=== PATIENT | male | born 1995 | race Caucasian/White ===

== ENCOUNTER 2021-02-12 10:20 | Emergency (ER) | payer MEDICAID, SELFPAY ==
[2021-02-12 10:22] VITALS: BP 140/77; PULSE 59; RESP 14; TEMP 36.7; O2SAT 99
--- NOTE | 2021-02-12 10:30 | DI.RAD_ITS ---
Exam(s) XR SHOULDER RT COMPLETE 2+V EXAM: XR SHOULDER RT COMPLETE 2+V CLINICAL HISTORY: R/O Fracture/ Dislocation. TECHNIQUE: 2D digital imaging was performed. COMPARISON: No exams were available for comparison FINDINGS: BONES: There is an acute mildly displaced fracture of the scapula just inferior to the glenoid. The inferior aspect of the scaphoid scapula is slightly displaced posteriorly. No bony destructive lesio n is seen. JOINTS: No dislocation present. SOFT TISSUE: Normal. IMPRESSION: Mildly displaced scapular fracture as described. DATA REPOSITORY: RADIATION DOSE DELIVERED:
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
== END 2021-02-12 12:08 | disposition home or self-care (01) ==
PROVIDERS: Emergency Provider Registered Nurse Emergency; PCP Pediatrics
DX: S42.191A Fracture of other part of scapula, right shoulder, initial encounter for closed fracture (principal); V19.9XXA Pedal cyclist (driver) (passenger) injured in unspecified traffic accident, initial encounter
CPT/HCPCS: 99283; 73030

== ENCOUNTER 2021-02-23 07:54 | Emergency (ER) | payer MEDICAID, SELFPAY ==
[2021-02-23 07:59] VITALS: BP 115/62; PULSE 63; RESP 18; TEMP 36.6; O2SAT 98
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
--- NOTE | 2021-02-23 08:30 | DI.RAD_ITS ---
Exam(s) XR SHOULDER RT COMPLETE 2+V EXAM: XR SHOULDER RT COMPLETE 2+V CLINICAL HISTORY: fx evaluation, fell >2wk ago. TECHNIQUE: 2D digital imaging was performed. COMPARISON: No exams were available for comparison FINDINGS: BONES: There has been no change in the alignment of the previously noted fracture of the scapula seen inferior to the glenoid. There is slightly increased callus formation at the fracture site. No new fractures are identified. No bony destructive lesion is seen. JOINTS: No dislocation present. SOFT TISSUE: Normal. IMPRESSION: Stable appearance of scapular fracture. DATA REPOSITORY: RADIATION DOSE DELIVERED:
--- NOTE | 2021-02-23 09:15 | DI.CT_ITS ---
Exam(s) CT UPPER EXTREMITY RT WO EXAM: CT UPPER EXTREMITY RT WO CLINICAL HISTORY: scapular fracture TECHNIQUE: Imaging Protocol: Axial computed tomography images with coronal and sagittal reformatted images were created and reviewed. CONTRAST MATERIAL: Noncontrast COMPARISON: CR XR SHOULDER RT COMPLETE 2+V from 02/23/2021 FINDINGS: Bones: There has been no change in the alignment of the fracture seen extending transversely through the scapula, beneath the level of the glenoid. There is mild dorsal displacement of the inferior fra ctured portion. No additional fractures are seen. The glenoid is not involved. The visualized port ions of the right lung appear clear. No cellulitic or osteomyelitic changes are identified. There i s no evidence of joint space narrowing or cystic degeneration seen. No lytic or sclerotic lesions are identified. Soft Tissues: Normal. IMPRESSION: Stable appearance mildly displaced fracture through the infra glenoid portion of the scapula. RADIATION DOSE DELIVERED: 298.23mGy.cm Total DLP DATA REPOSITORY: All CT scans at this facility are submitted to the National Radiology Data Registry (NRDR) Dose Index Registry (DIR) with the [employer] ([employer]). RADIATION OPTIMIZATION: All CT scans at this facility use at least one of these dose optimization te chniques: automated exposure control; mA and/or kV adjustment per patient size (includes targeted exa ms where dose is matched to clinical indication); or iterative reconstruction.
== END 2021-02-23 10:12 | disposition home or self-care (01) ==
PROVIDERS: Emergency Provider Physician Assistant
DX: S42.91XD Fracture of right shoulder girdle, part unspecified, subsequent encounter for fracture with routine healing (principal); V19.9XXD Pedal cyclist (driver) (passenger) injured in unspecified traffic accident, subsequent encounter
CPT/HCPCS: 99284; 73030; 73200; 99283

== ENCOUNTER 2021-03-28 14:45 | Outpatient (CLI) | payer MEDICAID, SELFPAY ==
--- NOTE | 2021-03-28 14:30 | DI.RAD_ITS ---
Exam(s) XR SCAPULA RT EXAM: XR SCAPULA RT CLINICAL HISTORY: RIGHT SCAPULA FX F/U. TECHNIQUE: 2D digital imaging was performed. COMPARISON: CR XR SHOULDER RT COMPLETE 2+V from 02/23/2021 FINDINGS: The scapular fracture immediately subjacent to the osseous glenoid is again noted, exhibiting minimal if any significant change. No further displacement. Glenohumeral joint appears intact. AC joint a ppears intact. IMPRESSION: DATA REPOSITORY: RADIATION DOSE DELIVERED:
== END 2021-03-28 14:46 | disposition home or self-care (01) ==
LOC: DIORS 14:45
PROVIDERS: Visit Provider Student in an Organized Health Care Education/Training Program
DX: S42.191D Fracture of other part of scapula, right shoulder, subsequent encounter for fracture with routine healing (principal)
CPT/HCPCS: 73010

== ENCOUNTER 2021-05-09 14:17 | Outpatient (CLI) | payer MEDICAID, SELFPAY ==
--- NOTE | 2021-05-09 14:15 | DI.RAD_ITS ---
Exam(s) XR SCAPULA RT EXAM: XR SCAPULA RT CLINICAL HISTORY: right scapula fx TECHNIQUE: COMPARISON: CR XR SCAPULA RT from 03/28/2021 FINDINGS: Three views were obtained. Previously described scapular fracture is again noted and appears to be h ealing with no change in alignment in comparison with previous examination March 28. IMPRESSION: RADIATION DOSE DELIVERED: Total DLP
== END 2021-05-09 14:18 | disposition home or self-care (01) ==
LOC: DIORS 14:21
PROVIDERS: Visit Provider Student in an Organized Health Care Education/Training Program
DX: S42.101D Fracture of unspecified part of scapula, right shoulder, subsequent encounter for fracture with routine healing (principal)
CPT/HCPCS: 73010